=== PATIENT | male | born 1980 | race Caucasian/White ===

== ENCOUNTER 2017-03-30 18:10 | Emergency (ER) | payer MEDICAID ==
[2017-03-30] MEDS ORDERED: cefTRIAXone 1 GM Vial IM ONE (18:19)
--- NOTE | 2017-03-30 18:19 | EDM.PDOC ---
ED HPI GENERAL MEDICAL PROBLEM - General Chief Complaint: General Stated Complaint: tootheache Time Seen by Provider: 03/30/17 18:10 Source of Information: Reports: Patient, Family (), Old Records ([facility] EMR. No paper hospital chart available.) History Limitations: Reports: No Limitations - History of Present Illness INITIAL COMMENTS - FREE TEXT/NARRATIVE: The patient was brought to the emergency room today via private automobile by his for evaluation of 10/10 sharp throbbing right lower dental pain with symptoms starting about 4 days ago. Note that the patient did break this tooth in August 2016 and attempted to remove the tooth on his own with pliers at that time. He denies any recent fever, dental drainage, facial swelling/ tenderness, etc. He did take 325 mg of aspirin at 14:00 hours this afternoon with no other treatments this point. No recent history of abdominal pain, heartburn, nausea, diarrhea, melena, gross hematochezia, or any food intolerance , including fatty foods, etc.. The patient also denies any recent fever, cough, wheezing, dyspnea, etc.. Onset: Gradual Duration: Day(s): (As above), Other (As above) Location: Reports: Other (Dental). Denies: Head, Face, Neck, Radiates to Quality: Reports: Ache, Sharp, Throbbing Severity: Severe Improves with: Reports: None Worsens with: Reports: None Context: Reports: Other (As above) Associated Symptoms: Reports: No Other Symptoms. 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 (As above) Right Lower Tooth/Teeth Pain Score (Numeric/FACES): 10 - Related Data Allergies Allergy/AdvReac Type Severity Reaction Status Date / Time No Known Allergies Allergy Verified 03/30/17 18:11 Home Meds: Home Meds Amoxicillin/Clavulanate K [Augmentin 875 MG/125 MG] 1 tab PO Q12HR #20 tablet [Rx] Past Medical History - Past Health History Medical/Surgical History: Denies Medical/Surgical History - History Comment History Comment: Limited previous medical care Social & Family History - Tobacco Use Smoking Status *Q: Current Every Day Smoker Tobacco Use Within Last Twelve Months: Cigarettes Years of Tobacco use: 19 Packs/Tins Daily: 1 (Patient started smoking at age 18) Smoking Cessation Information Provided To Patient: Yes - Living Situation & Occupation Living situation: Reports: (2003, 3 children) 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 ED EXAM, GENERAL - Physical Exam Exam: See Below Exam Limited By: No Limitations General Appearance: Alert, WD/WN, No Apparent Distress Eye Exam: Bilateral Eye: EOMI, Normal Inspection (No nystagmus), PERRL Ears: Normal External Exam, Normal Canal, Hearing Grossly Normal, Normal TMs Nose: Normal Inspection, Normal Mucosa, No Blood Throat/Mouth: Normal Inspection, Normal Lips, Normal Gums, Normal Oropharynx, Normal Voice, No Airway Compromise. No: Normal Teeth (Multiple missing teeth with large caries and broken teeth into the gumline of the fifth and sixth right lower teeth with no acute drainage, abscess, etc.), Dysphagia, Perioral Cyanosis Head: Atraumatic, Normocephalic. No: Facial Swelling, Facial Tenderness, Sinus Tenderness Neck: Normal Inspection, Supple, Non-Tender, Full Range of Motion. No: Lymphadenopathy (L), Lymphadenopathy (R), Thyromegaly Respiratory/Chest: No Respiratory Distress, Lungs Clear, Normal Breath Sounds, No Accessory Muscle Use, Chest Non-Tender. No: Pleural Rub, Retractions Cardiovascular: Normal Peripheral Pulses, Regular Rate, Rhythm, No Edema, No Gallop, No JVD, No Murmur, No Rub. No: Gallop/S3, Gallop/S4, Friction Rub Peripheral Pulses: 4+: Radial (L), Radial (R) GI/Abdominal: Normal Bowel Sounds, Soft, Non-Tender, No Organomegaly, No Distention, No Abnormal Bruit, No Mass. No: Guarding (Male) Exam: Deferred Rectal (Males) Exam: Deferred Back Exam: Normal Inspection, Full Range of Motion. No: CVA Tenderness (L), CVA Tenderness (R), Muscle Spasm Extremities: Normal Inspection, Normal Range of Motion, Non-Tender, Normal Capillary Refill, No Pedal Edema Neurological: Alert, Oriented, CN II-XII Intact, Normal Cognition, Normal Gait, No Motor/Sensory Deficits Psychiatric: Normal Affect, Normal Mood Skin Exam: Warm, Dry, Intact, Normal Color, No Rash Lymphatic: No Adenopathy Course - Vital Signs Text/Narrative:: Vital Signs - 24 hr 03/30/17 03/30/17 18:14 18:30 Temperature [ 36.7 C Temporal] Pulse, 87 83 Peripheral [ Left Pulse Oximetry] Respiratory 18 18 Rate Blood Pressure 137/94 H 144/96 H [Left Upper Arm ] O2 Sat by Pulse 100 99 Oximetry Last Recorded V/S: Last Vital Signs Temp 36.7 C 03/30/17 18:14 Pulse 83 03/30/17 18:30 Resp 18 03/30/17 18:30 BP 144/96 H 03/30/17 18:30 Pulse Ox 99 03/30/17 18:30 - Orders/Labs/Meds Orders: Active Orders 24 hr Category Date Time Status Obtain Past Medical Record [OM.PC] Routine Oth 03/30/17 18:19 Active Labs: None Meds: Medications Discontinued Medications Generic Name Dose Route Start Last Admin Trade Name Laura PRAzul Reason Stop Dose Admin Ceftriaxone Sodium 1 gm 03/30/17 18:19 03/30/17 18:40 Rocephin IM 03/30/17 18:20 1 gm ONETIME ONE Administration Ketorolac Tromethamine 60 mg 03/30/17 18:20 03/30/17 18:36 Toradol IM 03/30/17 18:21 60 mg ONETIME ONE Administration Lidocaine HCl 5 ml 03/30/17 18:20 03/30/17 18:40 Xylocaine-Mpf 1% INJECT 03/30/17 18:21 5 ml ONETIME ONE Administration - Radiology Interpretation Free Text/Narrative:: None Departure - Departure Time of Disposition: 19:15 Disposition: Home, Self-Care 01 Condition: Good Clinical Impression: Dental abscess, Tobacco abuse counseling - Discharge Information Prescriptions: Amoxicillin/Clavulanate K [Augmentin 875 MG/125 MG] 1 tab PO Q12HR #20 tablet Instructions: Dental Abscess, [id number] Referrals: PCP,Unknown [Primary Care Provider] - Forms: ED Department Discharge Additional Instructions: 1. Follow-up with your dentist BONIFACIO as discussed for probable tooth extractions 2. Listerine gargles four times per day, after meals and at bedtime, with additional Chloroseptic lozenges or spray as needed for 10 days and/or until symptoms resolve. 3. Tylenol 650 mg by mouth every 4 hours and/or OTC ibuprofen 2-3 tabs by mouth every 6 hours with food as directed./needed. Next dose of ibuprofen in 6 hours as needed secondary to medications given in the emergency room 4. Stop all tobacco use BONIFACIO as directed/per provided information and consider contacting Quit LIne, etc.. 5. Discuss with your regular provider possible update of your routine preventative health care with continued close follow-up of your blood pressure through that office - Problem List & Annotations (1) Dental abscess SNOMED Code(s): 508943908 Code(s): K04.7 - PERIAPICAL ABSCESS WITHOUT SINUS Status: Acute Priority : High Current Visit: Yes Onset Date: ~03/26/17 Annotation/Comment:: IM Rocephin and IM Toradol given in the emergency room as above. Patient cautioned to maintain proper dental care and follow-up with his dentist BONIFACIO. He was also cautioned about not attempting toe procedures on his own. An oral surgeon referral may be needed. Outpatient Augmentin therapy for now with additional care as per discharge instructions. Note that patient has very little previous preventative health care with blood pressures somewhat elevated today secondary to his discomfort. Close follow-up by his regular providers with routine preventative health care also encouraged. (2) Tobacco abuse counseling SNOMED Code(s): 944385293, 686438885, 371025933 Code(s): Z71.6 - TOBACCO ABUSE COUNSELING Status: Chronic Priority: Medium Current Visit: Yes Annotation/Comment:: Tobacco cessation strongly encouraged with information provided at discharge - Problem List Review Problem List Initiated/Reviewed/Updated: Yes - My Orders Last 24 Hours: My Active Orders 03/30/17 18:19 Obtain Past Medical Record [OM.PC] Routine - Assessment/Plan Last 24 Hours: My Active Orders 03/30/17 18:19 Obtain Past Medical Record [OM.PC] Routine Assessment:: As above Plan: As above. Extensive precautions were given to the patient and his , who are in agreement with the treatment plan.
[2017-03-30] MEDS ORDERED: Ketorolac 60 MG/2 ML SDV IM ONE (18:20)
== END 2017-03-30 19:15 | disposition home or self-care (01) ==
LOC: LL.ED 18:10
DX: K04.7 Periapical abscess without sinus (principal); F17.210 Nicotine dependence, cigarettes, uncomplicated; Z71.6 Tobacco abuse counseling
CPT/HCPCS: 96372; 99282; J0696; J1885